=== PATIENT | female | born 1940 | race Caucasian/White ===

== ENCOUNTER 2021-12-02 06:27 | Day surgery (SDC) | payer MEDICARE, BC ==
[~2021-12-02 06:27] MED LIST: Acetaminophen 325 MG Tab PO SCH; Lactated Ringers 1,000 ML IV SCH; Lidocaine 1%/Sod Bicarbonate in NS 8.4% 1 ML Syringe IDERM PRN; Pregabalin 25 MG Cap PO SCH; Sodium Chloride 0.9% 10 ML Syringe FLUSH PRN; Sodium Chloride 0.9% 10 ML Syringe FLUSH SCH; oxyCODONE ER 10 MG TAB.ER PO SCH
[2021-12-02] MEDS ORDERED: Ropivacaine 0.5% 5 MG/ML 30 ML SDV ONE (06:34)
[2021-12-02] MEDS ORDERED: EPINEPHrine 1 MG/ML SDV ONE (06:34)
[2021-12-02] MEDS ORDERED: Propofol 200 MG/20 ML SDV ONE ×2 (06:39→08:00)
[2021-12-02] MEDS ORDERED: ceFAZolin 1 GM Vial ONE (06:40)
[2021-12-02] MEDS ORDERED: Midazolam 1 MG/ML 2 ML SDV ONE (06:40)
[2021-12-02] MEDS ORDERED: fentaNYL 100 MCG/2 ML SDV ONE (06:40)
[2021-12-02] MEDS ORDERED: Ketamine 500 mg/10 ML MDV ONE (07:28)
[2021-12-02] MEDS: Morphine 8 MG, EPINEPHrine 0.3 MG, Cefuroxime 750 MG, Ketorolac 30 MG, Sodium Chloride ... PRN ×10 (07:55→08:11)
[2021-12-02] MEDS: Vancomycin 1 GM SDV ONE ×2 (07:56→08:18)
[2021-12-02] MEDS ORDERED: oxyCODONE 5 MG Tab PO PRN (08:30)
[2021-12-02] MEDS ORDERED: HYDROmorphone 0.5 MG/0.5 ML Syringe IVPUSH PRN (08:56)
[2021-12-02] MEDS ORDERED: fentaNYL 100 MCG/2 ML SDV IVPUSH PRN (08:56)
[2021-12-02] MEDS ORDERED: Ondansetron 4 MG/2 ML SDV IVPUSH PRN (08:56)
[2021-12-02] MEDS ORDERED: Lactated Ringers 1,000 ML ONE (10:13)
== END 2021-12-02 12:35 | disposition home or self-care (01) ==
LOC: JD.SDS 06:27
PROVIDERS: ATTEND Orthopaedic Surgery
DX: M17.11 Unilateral primary osteoarthritis, right knee (principal); I10 Essential (primary) hypertension; E11.9 Type 2 diabetes mellitus without complications; Z90.49 Acquired absence of other specified parts of digestive tract; Z98.890 Other specified postprocedural states; Z91.040 Latex allergy status; Z79.899 Other long term (current) drug therapy; R00.1 Bradycardia, unspecified
CPT/HCPCS: 27447; 73560; 97110; 97116; 97161; A9270; C1713; C1776; J0171; J0690; J0697; J1170; J1885; J2250; J2270; J2405; J2704; J2795; J3010; J3370; J7120; 01402; 64447; 76942; 99100; J3490